=== PATIENT | female | born 1935 | race Caucasian/White ===

== ENCOUNTER → 2016-10-09 | Outpatient (CLI) | payer MEDICARE ==
--- NOTE | 2016-10-09 19:37 | PCVCIMAG ---
APPROVED REPORT Study performed: 10/09/2016 14:48:09 EXAM: Comprehensive 2D, Doppler, and color-flow Echocardiogram Patient Location: Echo lab Other Information Study Quality: Adequate Indications Dyspnea 2D Dimensions IVSd: 9.24 (7-11mm) LVDd: 42.23 mm PWd: 8.38 (7-11mm)Ascending Ao: 22.42 (22-36mm) LVDs: 23.77 (25-40mm) Left Atrium: 32.02 (27-40mm) Aortic Root: 23.49 mm LV Single Plane 4CH: 60.70 % LV Single Plane 2CH: 53.07 %Matute's LVEF: 56.88 % Biplane EF: 56.2 % Volumes Left Atrial Volume (Systole) Single Plane 4CH: 33.69 mLSingle Plane 2CH: 33.86 mL LA ESV Index: 25.00 mL/m2 Aortic Valve AoV Peak Nickolas.: 1.60 m/s AO Peak Gr.: 10.20 mmHgLVOT Max P.47 mmHg LVOT Max V: 1.17 m/s Mitral Valve E/A Ratio: 1.2 MV Decel. Time: 183.07 ms MV E Max Nickolas.: 0.90 m/s MV A Nickolas.: 0.77 m/s MV PHT: 53.09 ms TDI E/Lateral E': 11.00E/Medial E': 0.15 E': 8.00Medial E' Nickolas.: 6.00 m/s Pulmonary Valve PV Peak Nickolas.: 0.95 m/sPV Peak Gr.: 3.62 mmHg Pulmonary Vein P Vein S: 0.51 m/sP Vein A: 0.37 m/s P Vein D: 0.33 m/sP Vein A Dur.: 93.4 msec P Vein S/D Ratio: 1.55 Tricuspid Valve TR Peak Nickolas.: 1.67 m/s TR Peak Gr.: 11.21 mmHg TV Vmax: 0.75 m/s Left Ventricle The left ventricle is normal size. There is normal LV segmental wall motion. There is normal left ventricular wall thickness. Left ventricular systolic function is normal. The left ventricular ejection fraction is within the normal range. LVEF is 55-60%. The left ventricular diastolic function is normal. Right Ventricle The right ventricle is normal size. The right ventricular systolic function is normal. Atria The left atrium size is normal. The right atrium size is normal. Aortic Valve The aortic valve is normal in structure. No aortic regurgitation is present. There is no aortic valvular stenosis. Mitral Valve The mitral valve is normal in structure. There is no mitral valve regurgitation noted. No evidence of mitral valve stenosis. Tricuspid Valve The tricuspid valve is normal in structure. Trace to mild tricuspid regurgitation with a PA pressure of 18 mmHg. Pulmonic Valve The pulmonary valve is normal in structure. There is no pulmonic valvular regurgitation. Great Vessels The aortic root is normal in size. IVC is normal in size and collapses with >50% inspiration Pericardium There is no pericardial effusion. <Conclusion> The left ventricle is normal size. There is normal left ventricular wall thickness. Left ventricular systolic function is normal. The left ventricular ejection fraction is within the normal range. LVEF is 55-60%. The right ventricle is normal size. The left atrium size is normal. The aortic valve is normal in structure. The tricuspid valve is normal in structure. The mitral valve is normal in structure. The aortic root is normal in size. There is no pericardial effusion.
== END | disposition home or self-care (01) ==
LOC: PCVCIMAG 14:38
PROVIDERS: ATTEND Internal Medicine Cardiovascular Disease
DX: I07.1 Rheumatic tricuspid insufficiency (principal); R06.00 Dyspnea, unspecified
CPT/HCPCS: 93306

== ENCOUNTER → 2016-10-11 | Outpatient (CLI) | payer MEDICARE | END | disposition home or self-care (01) | LOC: PCVCCLINIC 13:54 | PROVIDERS: ATTEND Internal Medicine Cardiovascular Disease | DX: I10 Essential (primary) hypertension (principal); E78.5 Hyperlipidemia, unspecified; R06.09 Other forms of dyspnea; R53.83 Other fatigue; E78.00 Pure hypercholesterolemia, unspecified; E03.9 Hypothyroidism, unspecified; Z82.49 Family history of ischemic heart disease and other diseases of the circulatory system; Z87.891 Personal history of nicotine dependence | CPT/HCPCS: 80061; 93005; G0463 ==

== ENCOUNTER → 2016-10-15 | Outpatient (CLI) | payer MEDICARE ==
[~2016-10-15] MED LIST: REGADENOSON 0.4 MG/5 ML DISP.SYRIN. IV ONE
--- NOTE | 2016-10-15 14:58 | PCVCIMAG ---
APPROVED REPORT Exam: Nuclear Stress Test Indication: Dyspnea & Fatigue Patient Location: Out-Patient Stress Nurse: Yue Millard RN; Tracy Zuñiga RN ID Tech:Nasreen Syedhbun [facility] Ht: 5 ft 2 in Wt: 162 lbs BSA: 1.75 m2 HR: 99 bpm BP: 188/92 mmHg Rhythm: NSR Medical History Medical History: Hyperlipidemia, HTN, Tobacco history (Former), Family history of CAD Medications: ASA, Zocor Allergies: Gabapentin, Minocycline Pretest Chest Pain Characteristics: No chest pain Exercise History: Physically active Physical Disabilities: Feet NM EXAM: Myocardial Perfusion REST/STRESS Imaging Protocol: Rest Tc-99m/Stress Tc-99m 1 day Resting Data Rest SPECT myocardial perfusion imaging was performed in supine position 45 minutes following the intravenous injection of 10.6 mCi of Tc-99m Sestamibi. Time of rest injection: 0845 Date: 10/15/2016 Time of rest imaging: Pharmacologic Stress Pharmacologic stress test was performed by injecting Regadenoson 0.4 mg IV push followed by the intravenous injection of 33.1 mCi of Tc-99m Sestamibi. Time of stress injection: 1015 Date: 10/15/2016 Heart Rate at time of stress injection: 99 bpm. Gated Stress SPECT was performed 45 minutes after stress injection. The images were gated to evaluate regional wall motion and calculate left ventricular ejection fraction. Study Quality Study: Good Study Data Post stress, the left ventricular ejection was 87%.. SSS: 0 SRS: 0 SDS: 0 TID = 0.61. Perfusion No evidence of stress induced ischemia or prior myocardial infarction. Wall Motion Normal left ventricular size and function with no regional wall motion abnormalities. Nuclear Conclusion Normal myocardial perfusion. Normal global and segmental LV systolic function. Post stress, the left ventricular ejection was 87%. No prior study available for comparison. Interpreted by: Kemal Knowles MD Electronically Approved: 10/15/2016 14:50:40 Stress Test Details Stress Test: Pharmacologic stress testing performed using 0.4 mg of regadenoson per 5 mL given IV over 10 seconds. Reason for pharmacologic stress test: physical limitation. HR Resting HR: 94 bpmMax Heart Rate (APMHR): 140 bpm Max HR Achieved: 141 bpmTarget HR (85% APMHR): 119 bpm % of APMHR: 100 Recovery HR: 97 bpm BP Resting BP: 188/95 mmHg Max BP: 205/84 mmHg Recovery BP: 159/55 mmHg ECG Resting ECG: Sinus Rhythm Stress ECG: Sinus Tachycardia ST Change: None Maximum ST Deviation: 0.75 mm Recovery ECG: Sinus Tachycardia Clinical Reason for Termination: Completed protocol Stress Symptoms: Dyspnea, resolved during recovery period. Exercise duration: 00 min 55 sec Exercise capacity: 1.6 METs Symptoms resolved during recovery. Stress ECG Conclusion ECG: Non-ischemic Clinical: Non-ischemic <Conclusion> ECG: Non-ischemic Clinical: Non-ischemic
== END | disposition home or self-care (01) ==
LOC: PCVCIMAG 08:24
PROVIDERS: ATTEND Internal Medicine Cardiovascular Disease
DX: R53.83 Other fatigue (principal); R06.00 Dyspnea, unspecified; I10 Essential (primary) hypertension; E78.5 Hyperlipidemia, unspecified; Z87.891 Personal history of nicotine dependence; Z82.49 Family history of ischemic heart disease and other diseases of the circulatory system
CPT/HCPCS: 78452; 93017; A9500; J2785